=== PATIENT | female | born 1990 | race Hispanic/Latino ===

== ENCOUNTER 2019-02-04 11:09 | Emergency (ER) | payer SELFPAY ==
[~2019-02-04] VITALS: Ht 152.4 cm; Wt 56.0 kg
[2019-02-04] MEDS ORDERED: BACTRIM DS1 TAB PO (12:21)
[2019-02-04 12:31] VITALS: BP 134/80
== END 2019-02-04 12:32 | disposition home or self-care (01) | DRG 603 ==
LOC: ED 11:09
DX: L08.89 Other specified local infections of the skin and subcutaneous tissue (principal)